=== PATIENT | female | born 1990 | race American Indian/Alaskan Native ===

== ENCOUNTER 2021-08-06 12:05 | Inpatient (IN) | payer MEDICAID ==
[2021-08-06] MEDS ORDERED: LACTATED RINGERS 1,000 ML ONE (16:27)
[2021-08-06 16:32] LABS: Basophils % (Auto) 0.5 % (0.0-1.8); Eosinophils % (Auto) 0.5 % (0.0-4.3); Hematocrit 34.4 % (30.3-42.9); Hemoglobin 11.8 gm/dl (10.1-14.3); Lymphocytes # (Auto) 1.3 K/mm3 (1.2-5.4); Lymphocytes % (Auto) 22.1 % (13.4-35.0); Mean Corpuscular HGB Conc 34 % (30-34); Mean Corpuscular Volume 96 fl (79-97); Monocytes # (Auto) 0.5 K/mm3 (0.0-0.8); Monocytes % (Auto) 7.7 % (0.0-7.3); Platelet Count 113 K/mm3 (140-440); Red Blood Count 3.57 M/mm3 (3.65-5.03); Red Cell Distribution Width 14.8 % (13.2-15.2)
--- NOTE | 2021-08-06 16:48 | History and Physical Report ---
History of Present Illness Date of examination: 08/06/21 Date of admission: 08/06/21 13:38 Chief complaint: Presents for induction of labor due to IUGR History of present illness: Late entry to care, course complicated by Vitamin D Deficiency and HSV II, with history of outbreak during ; third trimester complicated by IUGR. 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 Family/Genetic History: heart disease (PGF), hypertension (MGF), cancer (PGM: B rain and Lung Ca) Social history: no significant social history, single - Obstetrical History Expected Date of Delivery: 08/06/21 Actual Gestation: 40 Week(s) 0 Day(s) : 2 Spontaneous Abortions: 1 Medications and Allergies Allergies Allergy/AdvReac Type Severity Reaction Status Date / Time No Known Allergies Allergy Unverified 08/06/21 14:48 Active Meds: Active Medications Citric Acid/Sodium Citrate (Bicitra Oral Liqd 30ml) 30 ml PO ONCE ONE Stop: 08/06/21 16:40 Famotidine (Famotidine 20 Mg/2 Ml Inj) 20 mg IV ONCE ONE Stop: 08/06/21 16:40 Lactated Ringer's (Lactated Ringers) 1,000 mls @ 2,250 mls/hr IV PREOP RENETTA Stop: 08/07/21 17:12 Oxytocin/Sodium Chloride (Pitocin/Ns 30 Unit/500ml) 30 units in 500 mls @ 0 mls/hr IV TITR RENETTA; Protocol Cefazolin Sodium (Ancef/Sterile Water 2 Gm/20 Ml) 2 gm in 20 mls @ 80 mls/hr IV PREOP NR; Protocol Lidocaine/Prilocaine (Emla Cream 5 Gm) 1 applic TP ONCE PRN PRN Reason: for escalante catheter insertion Metoclopramide HCl (Metoclopramide 10 Mg/2 Ml Inj) 10 mg IV ONCE ONE Stop: 08/06/21 16:40 Review of Systems All systems: negative - Vital Signs Vital signs: Vital Signs Pulse Pulse Ox 69 99 08/06/21 14:37 08/06/21 14:37 Temp Pulse Resp BP Pulse Ox 98.4 F 52 L 100/65 100 08/06/21 15:13 08/06/21 16:42 08/06/21 14:43 08/06/21 16:42 - Physical Exam Breasts: Positive: normal Cardiovascular: Regular rate Lungs: Positive: Clear to auscultation, Normal air movement Abdomen: Positive: normal appearance, soft, normal bowel sounds Genitourinary (Female): Positive: normal external genitalia, normal perenium Vagina: Positive: normal moisture Uterus: Positive: enlarged - Obstetrical FHR: category 2 FHR comments: FHR: 120, min to moderate varability, +occ mild varabile decel, and 1 decel down to the 70s lasting 2 mins (resolved). Currently Category I Tracing Uterine Contraction Monitor Mode: External Cervical Dilatation: 0 Cervical Effacement Percentage: 20 station: -4 Uterine Contraction Pattern: Absent Uterine Tone Measurement Phase: Resting Results Result Diagrams: 08/06/21 16:08 Abnormal lab results 08/06/21 Range/Units 16:08 [place] % (Auto) 7.7 H (0.0-7.3) % All other labs normal. Assessment and Plan A: IUP @ 40 Weeks Category II Tracing (resloved), currently Category I Tracing IUGR GBS Negative P: Admit to L&D per Routine Orders Dr. Smart Consulted; Recommends delivery by
[2021-08-06] MEDS ORDERED: EMLA CREAM 5 GM TP PRN (17:00)
[2021-08-06] MEDS ORDERED: OXYTOCIN DRIP 30 UNITS/500 ML BAG IV SCH (17:00)
[2021-08-06] MEDS ORDERED: ceFAZolin/Water 2 GM/20 ML 2 GM/20 ML SYRINGE IV NR ×2 (17:00→23:45)
[2021-08-06] MEDS ORDERED: METOCLOPRAMIDE 10 MG/2 ML INJ IV SCH (17:00)
[2021-08-06] MEDS ORDERED: FAMOTIDINE 20 MG/2 ML INJ IV SCH (17:00)
[2021-08-06] MEDS ORDERED: BICITRA ORAL LIQD 30ML PO SCH (17:00)
[2021-08-06] MEDS ORDERED: LACTATED RINGERS 1,000 ML IV SCH (17:00)
--- NOTE | 2021-08-06 18:19 | Progress Note ---
Subjective - Subjective Date of service: 08/06/21 Interval history: FHT Category 1 [place]: irregular Cervix FT/soft,posterior Plan for low dose oxytocin Ashia Smart MD Objective - Vital Signs Vital Signs: Vital Signs - 12hr 08/06/21 08/06/21 08/06/21 14:37 14:42 14:43 Temperature Pulse Rate 69 71 68 Blood Pressure 100/65 O2 Sat by Pulse 99 99 Oximetry O2 Sat by Pulse Oximetry [ Bilateral Throughout] 08/06/21 08/06/21 08/06/21 14:47 14:52 14:57 Temperature Pulse Rate 65 62 69 Blood Pressure O2 Sat by Pulse 98 99 98 Oximetry O2 Sat by Pulse Oximetry [ Bilateral Throughout] 08/06/21 08/06/21 08/06/21 15:02 15:07 15:10 Temperature Pulse Rate 61 65 Blood Pressure O2 Sat by Pulse 99 97 Oximetry O2 Sat by Pulse 100 Oximetry [ Bilateral Throughout] 08/06/21 08/06/21 08/06/21 15:12 15:13 15:17 Temperature 98.4 F Pulse Rate 65 63 Blood Pressure O2 Sat by Pulse 97 97 Oximetry O2 Sat by Pulse Oximetry [ Bilateral Throughout] 08/06/21 08/06/21 08/06/21 15:22 15:27 15:32 Temperature Pulse Rate 68 64 64 Blood Pressure O2 Sat by Pulse 97 97 97 Oximetry O2 Sat by Pulse Oximetry [ Bilateral Throughout] 08/06/21 08/06/21 08/06/21 15:37 15:42 15:47 Temperature Pulse Rate 63 65 66 Blood Pressure O2 Sat by Pulse 97 97 97 Oximetry O2 Sat by Pulse Oximetry [ Bilateral Throughout] 08/06/21 08/06/21 08/06/21 15:52 15:57 16:02 Temperature Pulse Rate 62 67 71 Blood Pressure O2 Sat by Pulse 97 98 98 Oximetry O2 Sat by Pulse Oximetry [ Bilateral Throughout] 08/06/21 08/06/21 08/06/21 16:07 16:12 16:17 Temperature Pulse Rate 64 72 65 Blood Pressure O2 Sat by Pulse 98 99 100 Oximetry O2 Sat by Pulse Oximetry [ Bilateral Throughout] 08/06/21 08/06/21 08/06/21 16:22 16:27 16:32 Temperature Pulse Rate 66 63 57 L Blood Pressure O2 Sat by Pulse 99 100 100 Oximetry O2 Sat by Pulse Oximetry [ Bilateral Throughout] 08/06/21 08/06/21 08/06/21 16:37 16:42 16:47 Temperature Pulse Rate 56 L 52 L 56 L Blood Pressure O2 Sat by Pulse 100 100 100 Oximetry O2 Sat by Pulse Oximetry [ Bilateral Throughout] 08/06/21 08/06/21 08/06/21 16:52 16:57 17:02 Temperature Pulse Rate 60 57 L 52 L Blood Pressure O2 Sat by Pulse 100 100 100 Oximetry O2 Sat by Pulse Oximetry [ Bilateral Throughout] 08/06/21 08/06/21 08/06/21 17:07 17:12 17:17 Temperature Pulse Rate 52 L 57 L 54 L Blood Pressure O2 Sat by Pulse 100 100 100 Oximetry O2 Sat by Pulse Oximetry [ Bilateral Throughout] 08/06/21 08/06/21 08/06/21 17:20 17:22 17:24 Temperature Pulse Rate 72 66 54 L Blood Pressure 112/82 O2 Sat by Pulse 94 100 Oximetry O2 Sat by Pulse Oximetry [ Bilateral Throughout] 08/06/21 08/06/21 08/06/21 17:34 17:39 17:44 Temperature Pulse Rate 74 60 66 Blood Pressure O2 Sat by Pulse 78 L 100 100 Oximetry O2 Sat by Pulse Oximetry [ Bilateral Throughout] 08/06/21 08/06/21 08/06/21 17:49 17:54 17:59 Temperature Pulse Rate 58 L 63 58 L Blood Pressure O2 Sat by Pulse 100 100 100 Oximetry O2 Sat by Pulse Oximetry [ Bilateral Throughout] 08/06/21 08/06/21 08/06/21 18:04 18:09 18:14 Temperature Pulse Rate 68 67 55 L Blood Pressure O2 Sat by Pulse 100 100 99 Oximetry O2 Sat by Pulse Oximetry [ Bilateral Throughout] - Labs Labs: Abnormal Labs 08/06/21 16:08 RBC 3.57 L MCH 33 H Plt Count 113 L [place] % (Auto) 7.7 H Laboratory Results - last 24 hr 08/06/21 08/06/21 16:08 16:15 WBC 6.0 RBC 3.57 L Hgb 11.8 Hct 34.4 MCV 96 MCH 33 H MCHC 34 RDW 14.8 Plt Count 113 L Lymph % (Auto) 22.1 [place] % (Auto) 7.7 H Eos % (Auto) 0.5 Baso % (Auto) 0.5 Lymph # (Auto) 1.3 [place] # (Auto) 0.5 Eos # (Auto) 0.0 Baso # (Auto) 0.0 Seg Neutrophils % 69.2 Seg Neutrophils # 4.1 Blood Type O POSITIVE Antibody Screen Negative
[2021-08-06] MEDS ORDERED: DINOPROSTONE 10 MG VAG SUPP VG ONE (20:27)
[2021-08-06] MEDS ORDERED: TERBUTALINE 1 MG/1 ML INJ ONE (23:53)
[2021-08-06] MEDS ORDERED: BICITRA ORAL LIQD 30ML PO ONE (23:55)
[2021-08-06] MEDS ORDERED: METOCLOPRAMIDE 10 MG/2 ML INJ IV ONE (23:55)
[2021-08-06] MEDS ORDERED: FAMOTIDINE 20 MG/2 ML INJ IV ONE (23:55)
--- NOTE | 2021-08-06 23:57 | Event Note ---
Date: 08/06/21 Patient having persistent variables cervidil removed plan for delivery informed consent Ashia Smart MD
[2021-08-07] MEDS ORDERED: TERBUTALINE 1 MG/1 ML INJ SUB-Q ONE
[2021-08-07] MEDS ORDERED: FAMOTIDINE 20 MG/2 ML INJ IV ONE (00:58)
[2021-08-07] MEDS ORDERED: METOCLOPRAMIDE 10 MG/2 ML INJ IV ONE (00:58)
[2021-08-07] MEDS ORDERED: BICITRA ORAL LIQD 30ML PO ONE (00:58)
[2021-08-07] MEDS ORDERED: ceFAZolin/Water 2 GM/20 ML 2 GM/20 ML SYRINGE IV NR ×2 (01:00→09:00)
[2021-08-07] MEDS ORDERED: LACTATED RINGERS 1,000 ML IV SCH (01:00)
--- NOTE | 2021-08-07 01:00 | Progress Note ---
Subjective - Subjective Date of service: 08/07/21 Interval history: Prolonged second stage>4 hours +ve caput Early chorio suspected plan for operative delivery informed consent Ashia Smart MD Objective - Vital Signs Vital Signs: Vital Signs - 12hr 08/06/21 08/06/21 08/06/21 14:37 14:42 14:43 Temperature Pulse Rate 69 71 68 Respiratory Rate Blood Pressure 100/65 O2 Sat by Pulse 99 99 Oximetry O2 Sat by Pulse Oximetry [ Bilateral Throughout] 08/06/21 08/06/21 08/06/21 14:47 14:52 14:57 Temperature Pulse Rate 65 62 69 Respiratory Rate Blood Pressure O2 Sat by Pulse 98 99 98 Oximetry O2 Sat by Pulse Oximetry [ Bilateral Throughout] 08/06/21 08/06/21 08/06/21 15:02 15:07 15:10 Temperature Pulse Rate 61 65 Respiratory Rate Blood Pressure O2 Sat by Pulse 99 97 Oximetry O2 Sat by Pulse 100 Oximetry [ Bilateral Throughout] 08/06/21 08/06/21 08/06/21 15:12 15:13 15:17 Temperature 98.4 F Pulse Rate 65 63 Respiratory Rate Blood Pressure O2 Sat by Pulse 97 97 Oximetry O2 Sat by Pulse Oximetry [ Bilateral Throughout] 08/06/21 08/06/21 08/06/21 15:22 15:27 15:32 Temperature Pulse Rate 68 64 64 Respiratory Rate Blood Pressure O2 Sat by Pulse 97 97 97 Oximetry O2 Sat by Pulse Oximetry [ Bilateral Throughout] 08/06/21 08/06/21 08/06/21 15:37 15:42 15:47 Temperature Pulse Rate 63 65 66 Respiratory Rate Blood Pressure O2 Sat by Pulse 97 97 97 Oximetry O2 Sat by Pulse Oximetry [ Bilateral Throughout] 08/06/21 08/06/21 08/06/21 15:52 15:57 16:02 Temperature Pulse Rate 62 67 71 Respiratory Rate Blood Pressure O2 Sat by Pulse 97 98 98 Oximetry O2 Sat by Pulse Oximetry [ Bilateral Throughout] 08/06/21 08/06/21 08/06/21 16:07 16:12 16:17 Temperature Pulse Rate 64 72 65 Respiratory Rate Blood Pressure O2 Sat by Pulse 98 99 100 Oximetry O2 Sat by Pulse Oximetry [ Bilateral Throughout] 08/06/21 08/06/21 08/06/21 16:22 16:27 16:32 Temperature Pulse Rate 66 63 57 L Respiratory Rate Blood Pressure O2 Sat by Pulse 99 100 100 Oximetry O2 Sat by Pulse Oximetry [ Bilateral Throughout] 08/06/21 08/06/21 08/06/21 16:37 16:42 16:47 Temperature Pulse Rate 56 L 52 L 56 L Respiratory Rate Blood Pressure O2 Sat by Pulse 100 100 100 Oximetry O2 Sat by Pulse Oximetry [ Bilateral Throughout] 08/06/21 08/06/21 08/06/21 16:52 16:57 17:02 Temperature Pulse Rate 60 57 L 52 L Respiratory Rate Blood Pressure O2 Sat by Pulse 100 100 100 Oximetry O2 Sat by Pulse Oximetry [ Bilateral Throughout] 08/06/21 08/06/21 08/06/21 17:07 17:12 17:17 Temperature Pulse Rate 52 L 57 L 54 L Respiratory Rate Blood Pressure O2 Sat by Pulse 100 100 100 Oximetry O2 Sat by Pulse Oximetry [ Bilateral Throughout] 08/06/21 08/06/21 08/06/21 17:20 17:22 17:24 Temperature Pulse Rate 72 66 54 L Respiratory Rate Blood Pressure 112/82 O2 Sat by Pulse 94 100 Oximetry O2 Sat by Pulse Oximetry [ Bilateral Throughout] 08/06/21 08/06/21 08/06/21 17:34 17:39 17:44 Temperature Pulse Rate 74 60 66 Respiratory Rate Blood Pressure O2 Sat by Pulse 78 L 100 100 Oximetry O2 Sat by Pulse Oximetry [ Bilateral Throughout] 08/06/21 08/06/21 08/06/21 17:49 17:54 17:59 Temperature Pulse Rate 58 L 63 58 L Respiratory Rate Blood Pressure O2 Sat by Pulse 100 100 100 Oximetry O2 Sat by Pulse Oximetry [ Bilateral Throughout] 08/06/21 08/06/21 08/06/21 18:04 18:09 18:14 Temperature Pulse Rate 68 67 55 L Respiratory Rate Blood Pressure O2 Sat by Pulse 100 100 99 Oximetry O2 Sat by Pulse Oximetry [ Bilateral Throughout] 08/06/21 08/06/21 08/06/21 18:19 18:20 18:24 Temperature 98.4 F Pulse Rate 62 68 Respiratory 18 Rate Blood Pressure O2 Sat by Pulse 100 100 Oximetry O2 Sat by Pulse Oximetry [ Bilateral Throughout] 08/06/21 08/06/21 08/06/21 18:29 18:34 18:39 Temperature Pulse Rate 63 56 L 71 Respiratory Rate Blood Pressure O2 Sat by Pulse 100 99 99 Oximetry O2 Sat by Pulse Oximetry [ Bilateral Throughout] 08/06/21 08/06/21 08/06/21 18:42 18:44 18:49 Temperature Pulse Rate 69 61 63 Respiratory Rate Blood Pressure 106/72 O2 Sat by Pulse 98 97 Oximetry O2 Sat by Pulse Oximetry [ Bilateral Throughout] 08/06/21 08/06/21 08/06/21 18:54 18:59 19:04 Temperature Pulse Rate 56 L 87 78 Respiratory Rate Blood Pressure O2 Sat by Pulse 98 100 100 Oximetry O2 Sat by Pulse Oximetry [ Bilateral Throughout] 08/06/21 08/06/21 08/06/21 19:09 19:12 19:14 Temperature Pulse Rate 80 72 69 Respiratory Rate Blood Pressure 109/71 O2 Sat by Pulse 100 100 Oximetry O2 Sat by Pulse Oximetry [ Bilateral Throughout] 08/06/21 08/06/21 08/06/21 19:19 19:24 19:27 Temperature Pulse Rate 60 74 82 Respiratory Rate Blood Pressure O2 Sat by Pulse 100 100 90 Oximetry O2 Sat by Pulse Oximetry [ Bilateral Throughout] 08/06/21 08/06/21 08/06/21 19:29 19:33 19:34 Temperature Pulse Rate 64 73 58 L Respiratory Rate Blood Pressure O2 Sat by Pulse 100 92 100 Oximetry O2 Sat by Pulse Oximetry [ Bilateral Throughout] 08/06/21 08/06/21 08/06/21 19:39 19:42 19:44 Temperature Pulse Rate 72 101 H 98 H Respiratory Rate Blood Pressure 108/68 O2 Sat by Pulse 100 87 84 Oximetry O2 Sat by Pulse Oximetry [ Bilateral Throughout] 08/06/21 08/06/21 08/06/21 20:04 20:36 20:37 Temperature Pulse Rate 75 81 Respiratory Rate Blood Pressure 100/64 O2 Sat by Pulse 98 Oximetry O2 Sat by Pulse 100 Oximetry [ Bilateral Throughout] 08/06/21 08/06/21 08/06/21 20:42 20:47 20:52 Temperature Pulse Rate 75 80 70 Respiratory Rate Blood Pressure O2 Sat by Pulse 99 98 97 Oximetry O2 Sat by Pulse Oximetry [ Bilateral Throughout] 08/06/21 08/06/21 08/06/21 20:53 20:57 21:02 Temperature Pulse Rate 67 67 73 Respiratory Rate Blood Pressure 100/61 O2 Sat by Pulse 97 97 Oximetry O2 Sat by Pulse Oximetry [ Bilateral Throughout] 08/06/21 08/06/21 08/06/21 21:07 21:12 21:15 Temperature Pulse Rate 74 61 59 L Respiratory Rate Blood Pressure 103/61 O2 Sat by Pulse 97 98 Oximetry O2 Sat by Pulse Oximetry [ Bilateral Throughout] 08/06/21 08/06/21 08/06/21 21:17 21:22 21:23 Temperature Pulse Rate 62 65 57 L Respiratory Rate Blood Pressure 101/64 O2 Sat by Pulse 98 98 Oximetry O2 Sat by Pulse Oximetry [ Bilateral Throughout] 08/06/21 08/06/21 08/06/21 21:27 21:32 21:37 Temperature Pulse Rate 71 68 70 Respiratory Rate Blood Pressure O2 Sat by Pulse 97 97 96 Oximetry O2 Sat by Pulse Oximetry [ Bilateral Throughout] 08/06/21 08/06/21 08/06/21 21:40 21:42 21:47 Temperature Pulse Rate 70 66 69 Respiratory Rate Blood Pressure 104/55 O2 Sat by Pulse 96 96 Oximetry O2 Sat by Pulse Oximetry [ Bilateral Throughout] 08/06/21 08/06/21 08/06/21 21:52 21:53 21:57 Temperature Pulse Rate 69 72 71 Respiratory Rate Blood Pressure 100/59 O2 Sat by Pulse 97 96 Oximetry O2 Sat by Pulse Oximetry [ Bilateral Throughout] 08/06/21 08/06/21 08/06/21 22:02 22:07 22:08 Temperature Pulse Rate 65 63 67 Respiratory Rate Blood Pressure 108/60 O2 Sat by Pulse 97 98 Oximetry O2 Sat by Pulse Oximetry [ Bilateral Throughout] 08/06/21 08/06/21 08/06/21 22:12 22:17 22:22 Temperature Pulse Rate 66 69 65 Respiratory Rate Blood Pressure O2 Sat by Pulse 98 98 98 Oximetry O2 Sat by Pulse Oximetry [ Bilateral Throughout] 08/06/21 08/06/21 08/06/21 22:23 22:27 22:32 Temperature Pulse Rate 63 65 58 L Respiratory Rate Blood Pressure 108/61 O2 Sat by Pulse 99 98 Oximetry O2 Sat by Pulse Oximetry [ Bilateral Throughout] 08/06/21 08/06/21 08/06/21 22:37 22:39 22:42 Temperature Pulse Rate 63 61 63 Respiratory Rate Blood Pressure 100/63 O2 Sat by Pulse 99 98 Oximetry O2 Sat by Pulse Oximetry [ Bilateral Throughout] 08/06/21 08/06/21 08/06/21 22:47 22:52 22:53 Temperature Pulse Rate 62 71 71 Respiratory Rate Blood Pressure 110/67 O2 Sat by Pulse 98 97 Oximetry O2 Sat by Pulse Oximetry [ Bilateral Throughout] 08/06/21 08/06/21 08/06/21 22:57 23:02 23:07 Temperature Pulse Rate 79 72 78 Respiratory Rate Blood Pressure O2 Sat by Pulse 99 98 97 Oximetry O2 Sat by Pulse Oximetry [ Bilateral Throughout] 08/06/21 08/06/21 08/06/21 23:10 23:12 23:17 Temperature Pulse Rate 61 62 61 Respiratory Rate Blood Pressure 95/55 O2 Sat by Pulse 97 97 Oximetry O2 Sat by Pulse Oximetry [ Bilateral Throughout] 08/06/21 08/06/21 08/06/21 23:22 23:23 23:27 Temperature Pulse Rate 65 61 61 Respiratory Rate Blood Pressure 101/55 O2 Sat by Pulse 97 97 Oximetry O2 Sat by Pulse Oximetry [ Bilateral Throughout] 08/06/21 08/06/21 08/06/21 23:32 23:37 23:39 Temperature Pulse Rate 62 64 78 Respiratory Rate Blood Pressure 114/65 O2 Sat by Pulse 97 99 Oximetry O2 Sat by Pulse Oximetry [ Bilateral Throughout] 08/06/21 08/06/21 08/06/21 23:42 23:47 23:52 Temperature Pulse Rate 65 64 81 Respiratory Rate Blood Pressure O2 Sat by Pulse 98 100 100 Oximetry O2 Sat by Pulse Oximetry [ Bilateral Throughout] 08/06/21 08/06/21 08/06/21 23:54 23:56 23:57 Temperature Pulse Rate 78 68 57 L Respiratory Rate Blood Pressure 133/75 O2 Sat by Pulse 88 100 Oximetry O2 Sat by Pulse Oximetry [ Bilateral Throughout] - Labs Labs: Abnormal Labs 08/06/21 16:08 RBC 3.57 L MCH 33 H Plt Count 113 L [place] % (Auto) 7.7 H Laboratory Results - last 24 hr 08/06/21 08/06/21 16:08 16:15 WBC 6.0 RBC 3.57 L Hgb 11.8 Hct 34.4 MCV 96 MCH 33 H MCHC 34 RDW 14.8 Plt Count 113 L Lymph % (Auto) 22.1 [place] % (Auto) 7.7 H Eos % (Auto) 0.5 Baso % (Auto) 0.5 Lymph # (Auto) 1.3 [place] # (Auto) 0.5 Eos # (Auto) 0.0 Baso # (Auto) 0.0 Seg Neutrophils % 69.2 Seg Neutrophils # 4.1 Blood Type O POSITIVE Antibody Screen Negative
[2021-08-07] MEDS ORDERED: BICITRA ORAL LIQD 30ML PO NR (09:00)
[2021-08-07] MEDS ORDERED: METOCLOPRAMIDE 10 MG/2 ML INJ IV NR (09:00)
[2021-08-07] MEDS ORDERED: FAMOTIDINE 20 MG/2 ML INJ IV NR (09:00)
[2021-08-07] MEDS ORDERED: TERBUTALINE 1 MG/1 ML INJ SUB-Q NR (09:00)
--- NOTE | 2021-08-07 09:02 | Anesthesia Consultation ---
Anesthesia Consult and Med Hx Date of service: 08/07/21 - Airway Anesthetic Teeth Evaluation: Good ROM Head & Neck: Adequate Mental/Hyoid Distance: Adequate Mallampati Class: Class II Intubation Access Assessment: Probably Good - Pulmonary Exam CTA: Yes - Cardiac Exam Cardiac Exam: RRR - Pre-Operative Health Status ASA Pre-Surgery Classification: ASA2 Proposed Anesthetic Plan: Spinal - Pulmonary Hx Asthma: No COPD: No Hx Pneumonia: No - Cardiovascular System Hx Hypertension: No - Central Nervous System Hx Seizures: No Hx Psychiatric Problems: No - Endocrine Hx Renal Disease: No Hx End Stage Renal Disease: No Hx Hypothyroidism: No Hx Hyperthyroidism: No - Hematic Hx Anemia: No Hx Sickle Cell Disease: No - Other Systems Hx Alcohol Use: No
--- NOTE | 2021-08-07 09:02 | Anesthesia Day of Surgery ---
Anesthesia Day of Surgery - Day of Surgery Patient Examined: Yes Patient H&P Reviewed: Yes Patient is NPO: Yes
[2021-08-07] MEDS: LACTATED RINGERS 1,000 ML IV SCH ×2 (09:30→11:32)
[2021-08-07] MEDS ORDERED: LIDOCAINE (2%) 20 MG/1 ML VIAL 20 ML MDV INFILTRATI ONE (12:05)
[2021-08-07] MEDS ORDERED: TERBUTALINE 1 MG/1 ML INJ SUB-Q PRN (12:05)
[2021-08-07] MEDS ORDERED: ceFAZolin/STERILE WATER 2 GM/20 ML SYRINGE IV ONE (12:30)
[2021-08-07] MEDS ORDERED: ONDANSETRON 4 MG/2 ML INJ ONE ×2 (12:30)
[2021-08-07] MEDS ORDERED: OXYTOCIN DRIP 30 UNITS/500 ML BAG IV SCH ×2 (13:00→14:00)
[2021-08-07] MEDS ORDERED: BUPIVACAINE/PF (0.5%) 5 MG/1 ML 30 ML VIAL INFILTRATI ONE (13:03)
--- NOTE | 2021-08-07 13:59 | Procedure Note ---
OB Delivery Note - Delivery Date of Delivery: 08/07/21 Surgeon: ISAÍAS NICKERSON JR - Section Preop diagnosis: nonreassuring FHR tracing Postop diagnosis: same section procedure: section, primary low transverse Disposition: PACU Complications: none Narrative: Indication: 31-year-old at 40 weeks, complicated by fetus with of IUGR presenting for an induction of labor now failed given inability to induce and nonreassuring heart tone for primary Findings: Normal uterus, tubes and ovaries. Meconium stained fluid. No nuchal cord. Delivery of female at 1314 Weight 2490 g Height 19.5 in APGARS 8/9 EBL IVF 1750cc UOP 600cc Procedure: Patient was taken to the operating room prepped and draped in the usual sterile fashion. Pfannenstiel skin incision was made and carried down to the underlying fascia. Fascia was incised and the incision was distended bilaterally. Rectus fascia was dissected off the rectus muscle superiorly and inferiorly. Peritoneum was identified and entered. Peritoneal incision extended superiorly and inferiorly. The bladder was visualized. The bladder blade was placed. Uterine hysterotomy incision was made and extended bilaterally. The baby was delivered in the typical vertex fashion. Baby was bulb suction at delivery. The cord was cut and clamped and handed off to the team. The placenta was delivered spontaneously. The uterus was exteriorized and cleared of all clots and debris. Uterine incision was closed with a 0 Vicryl in a running locked fashion. Good hemostasis was noted after figure of eight suture applied to the uterine incision x1. Surgicel powder. was applied to the uterine incisional base to provide hemostasis. The urine was noted to be clear. Uterus, tubes, and ovaries were returned to the abdominal cavity. Bilateral gutters were cleared and the abdomen and pelvis were irrig ated. Good hemostasis noted. The rectus muscle was reapproximated with 2-0 Vicryl. Attention was directed towards the rectus fascia which was reapproximated with 0 PDS in a running fashion. The subcutaneous tissue was irrigated and reapproximated with 2-0 Vicryl in a running fashion. Skin was closed with a 4-0 Vicryl in a subcuticular fashion. The procedure was completed and the patient tolerated the procedure well. All instruments and lap counts were correct x2. - Infant A at 1 minute: 8 at 5 minutes: 9 Infant Gender: Female
[2021-08-07] MEDS ORDERED: WITCH HAZEL/ GLYCERIN PAD TP PRN (14:00)
[2021-08-07] MEDS ORDERED: SIMETHICONE 80 MG CHEW TAB PO PRN (14:00)
[2021-08-07] MEDS ORDERED: PROMETHAZINE 25 MG RECT SUPP PR PRN (14:00)
[2021-08-07] MEDS ORDERED: ONDANSETRON 4 MG/2 ML INJ IV PRN (14:00)
[2021-08-07] MEDS ORDERED: oxyCODONE /ACETAMINOPHEN 5-325MG TAB PO PRN (14:00)
[2021-08-07] MEDS ORDERED: NALOXONE 0.4 MG/1 ML INJ IV PRN (14:00)
[2021-08-07] MEDS ORDERED: LANOLIN/ZINC/DIMETHICONE (LANSINOH) 7 GM TP PRN (14:00)
[2021-08-07] MEDS ORDERED: ACETAMINOPHEN 325 MG TAB PO PRN (14:00)
[2021-08-07] MEDS ORDERED: MORPHINE 4 MG/1 ML INJ IV PRN (14:00)
[2021-08-07] MEDS ORDERED: KETOROLAC 30 MG/1 ML INJ ONE (14:04)
[2021-08-07] MEDS ORDERED: dexAMETHasone 20 MG/5 ML VIAL ONE (14:04)
[2021-08-07] MEDS ORDERED: PHENYLEPHRINE 10 MG/1 ML INJ SDV ONE (14:15)
[2021-08-07] MEDS ORDERED: SODIUM CHLORIDE 0.9% 100 ML ONE (14:15)
[2021-08-07] MEDS ORDERED: HYDROCORTISONE 25 MG RECTAL SUPP PR PRN (22:00)
[2021-08-07] MEDS ORDERED: MAGNESIUM HYDROXIDE (MOM) ORAL LIQD UDC PO PRN (22:00)
[2021-08-07] MEDS ORDERED: SENNOSIDES 8.6 MG TAB PO PRN (22:00)
--- NOTE | 2021-08-07 22:09 | Progress Note ---
Spinal Anesthesia Block - Spinal Anesthesia Block Start Time: 12:22 Stop Time: 12:24 Performed by:: CRUZ BELTRAN Procedure: Sitting, sterile chlorahexadine 0.5% prep/drape, 1% lidocaine skin local, 25G spinal needle + introducer at L3-4, + CSF, - Heme, [1.9 ml 0.5% bupivacaine + 10 mcg dexmedetomidine] injected, drape removed, patient positioned supine with left uterine displacement, and spinal level verified to be adequate prior to surgery. Sukumar SRNA
[2021-08-07] MEDS: KETOROLAC 30 MG/1 ML INJ IV PRN (22:30)
[2021-08-08] MEDS: IBUPROFEN 800 MG TAB PO SCH ×4 (00:09→14:38)
[2021-08-08 03:06] LABS: Hemoglobin 10.9 gm/dl (10.1-14.3)
[2021-08-08] MEDS: KETOROLAC 30 MG/1 ML INJ IV PRN (04:43)
--- NOTE | 2021-08-08 10:03 | Post Anesthesia Evaluation ---
- Post Anesthesia Evaluation Patient Participated: Yes Airway Patent: Yes Stable Respiratory Function: Yes Nausea/Vomiting: No Temp > 96.8F: Yes Pain Manageable: Yes Adequeate Hydration: Yes Anesthesia Complications: No Block Receding Appropriately: Yes Patient on Ventilator: No
--- NOTE | 2021-08-08 13:23 | Progress Note ---
Assessment and Plan POD#1 C/Section doing well 1. Routine post op care 2. Pt to ambulate in room 3. Will remove dressing in am Subjective Date of service: 08/08/21 Principal diagnosis: POD#1 C/Section Interval history: pt has no complaints. pt has started both breast and bottle feed. pt voids without difficulty and vag bleed minimal. pt has passed flatus and tolerating clears diet. Pain controlled with meds Objective - Constitutional Vitals: Vital Signs - 12hr 08/08/21 08/08/21 08/08/21 02:47 04:32 04:43 Temperature 98.4 F Pulse Rate 52 L Respiratory 18 16 18 Rate Blood Pressure 125/78 O2 Sat by Pulse 98 Oximetry O2 Sat by Pulse Oximetry [ Bilateral Throughout] 08/08/21 08/08/21 08/08/21 05:13 08:00 08:10 Temperature 98.0 F Pulse Rate 44 L Respiratory 18 18 Rate Blood Pressure 109/69 O2 Sat by Pulse 99 Oximetry O2 Sat by Pulse 100 Oximetry [ Bilateral Throughout] 08/08/21 12:24 Temperature 97.9 F Pulse Rate 50 L Respiratory 18 Rate Blood Pressure 112/74 O2 Sat by Pulse 99 Oximetry O2 Sat by Pulse Oximetry [ Bilateral Throughout] General appearance: Present: no acute distress - Respiratory Respiratory effort: normal - Cardiovascular Rhythm: other (maternal heart rate low in 40-50's without symptoms) Extremities: No edema - Gastrointestinal General gastrointestinal: Present: soft, non-tender, normal bowel sounds - Musculoskeletal Musculoskeletal: strength equal bilaterally - Labs CBC & Chem 7: 08/08/21 02:02 Medications & Allergies - Medications Allergies/Adverse Reactions: Allergies No Known Allergies Allergy (Verified 08/06/21 18:35) Home Medications: Home Medications Medication Instructions Recorded Confirmed Last Taken Type Vitamin 1 tab PO DAILY 08/06/21 08/06/21 08/06/21 10:00 History Valacyclovir HCl [Valacyclovir] 1 tab PO BID 08/06/21 08/06/21 07/31/21 History Vitamin D3 2,000 UNIT CAP 2 tab PO DAILY 08/06/21 08/06/21 08/06/21 10:00 History Ibuprofen [Motrin 800 MG tab] 800 mg PO Q6H #30 tablet 08/07/21 Unknown Rx oxyCODONE /ACETAMINOPHEN [Percocet 1 tab PO Q6H PRN #30 tablet 08/07/21 Unknown Rx 5/325 mg] Active Medications: Generic Name Dose Route Start Last Admin Trade Name Freq PRN Reason Stop Dose Admin Acetaminophen 650 mg 08/07/21 14:00 Acetaminophen 325 Mg Tab PO Q4H PRN Fever >100.5/LIGHT Hydrocortisone Acetate 25 mg 08/07/21 22:00 Hydrocortisone 25 Mg Rectal Supp UT BID PRN Hemorrhoids Oxytocin/Sodium Chloride 30 units in 500 mls @ 2 mls/hr 08/07/21 13:00 Pitocin/Ns 30 Unit/500ml IV TITR R[facility] Protocol Oxytocin/Sodium Chloride 30 units in 500 mls @ 40 mls/hr 08/07/21 14:00 Pitocin/Ns 30 Unit/500ml IV TITR [facility] Protocol Ketorolac Tromethamine 30 mg 08/07/21 14:00 08/08/21 04:43 Ketorolac 30 Mg/1 Ml Inj IV 08/12/21 13:59 30 mg Q6H PRN Administration Pain, Moderate (4-6) Lidocaine/Prilocaine 1 applic 08/06/21 17:00 Emla Cream 5 Gm TP ONCE PRN for escalante catheter insertion Magnesium Hydroxide 30 ml 08/07/21 22:00 Magnesium Hydroxide (Mom) Oral Liqd Udc PO QHS PRN Constip Unrelieved By Senna Morphine Sulfate 4 mg 08/07/21 14:00 Morphine 4 Mg/1 Ml Inj IV Q4H PRN Pain , Severe (7-10) Multi-Ingredient Ointment 1 applic 08/07/21 14:00 Lanolin/Zinc/Dimethicone (Lansinoh) 7 Gm TP PRN PRN dryness/cracking Naloxone HCl 0.1 mg 08/07/21 14:00 Naloxone 0.4 Mg/1 Ml Inj IV Q2MIN PRN Res Rate </= 8 or 02 SAT < 92% Ondansetron HCl 4 mg 08/07/21 14:00 Ondansetron 4 Mg/2 Ml Inj IV Q8H PRN Nausea And Vomiting Oxycodone/Acetaminophen 1 tab 08/07/21 14:00 Oxycodone /Acetaminophen 5-325mg Tab PO Q6H PRN Pain, Moderate (4-6) Promethazine HCl 25 mg 08/07/21 14:00 Promethazine 25 Mg Rect Supp UT Q6H PRN N/V IF NPO AND NO IV ACCESS Senna 17.2 mg 08/07/21 22:00 Sennosides 8.6 Mg Tab PO QHS PRN Constipation Simethicone 80 mg 08/07/21 14:00 Simethicone 80 Mg Chew Tab PO Q6H PRN Gas pain Sodium Chloride 10 ml 08/07/21 14:00 Sodium Chloride 0.9% 10 Ml Flush Syringe IV PRN PRN flush Witch Amanda/Glycerin 1 each 08/07/21 14:00 Witch Amanda/ Glycerin Pad TP PRN PRN Hemorrhoids/cleansing/soothing
--- NOTE | 2021-08-08 19:10 | Event Note ---
Date: 08/08/21 pt was asymptomatic with maternal bradycardia. EKG done with sinus gabrielle. pt now with heart rate 64 and doing well. Will do expectant mgt.
--- NOTE | 2021-08-09 11:20 | Progress Note ---
Assessment and Plan POD#2 C/section doing fair, wound moist 1. Will keep wound open to air dry and give augmentin to enhance wound healing 2. Will consider discharge home tomorrow if wound dry and healing as expected; pt told not to take shower today 3. Plan of care discussed and pt agrees with plan of care Subjective Date of service: 08/09/21 Principal diagnosis: POD#2 C/Section Interval history: Pt has no complaints. Denies chest pain and pt feels fine and is breast feeding better today. Pt denies pelvic pain. Voiding well and tolerating diet Objective - Constitutional Vitals: Vital Signs - 12hr 08/09/21 08/09/21 08/09/21 00:20 00:39 08:17 Temperature 98.1 F 98.3 F Pulse Rate 81 54 L Respiratory 18 18 Rate Blood Pressure 100/59 109/60 O2 Sat by Pulse 97 98 Oximetry O2 Sat by Pulse 98 Oximetry [ Bilateral Throughout] General appearance: Present: no acute distress - Neck Neck: normal ROM - Respiratory Respiratory effort: normal - Cardiovascular Rhythm: other (still with bradycardia at times but remains asymptomatic) Extremities: No edema - Gastrointestinal General gastrointestinal: Present: non-tender (Incision after dressing removed is soaked with all blood stained steristrips and small dark red clot. Non- tender to palpation) - Neurologic Neurologic: moves all extremities - Psychiatric Psychiatric: cooperative - Labs CBC & Chem 7: 08/08/21 02:02 Medications & Allergies - Medications Allergies/Adverse Reactions: Allergies No Known Allergies Allergy (Verified 08/06/21 18:35) Home Medications: Home Medications Medication Instructions Recorded Confirmed Last Taken Type Vitamin 1 tab PO DAILY 08/06/21 08/06/21 08/06/21 10:00 History Valacyclovir HCl [Valacyclovir] 1 tab PO BID 08/06/21 08/06/21 07/31/21 History Vitamin D3 2,000 UNIT CAP 2 tab PO DAILY 08/06/21 08/06/21 08/06/21 10:00 History Ibuprofen [Motrin 800 MG tab] 800 mg PO Q6H #30 tablet 08/07/21 Unknown Rx oxyCODONE /ACETAMINOPHEN [Percocet 1 tab PO Q6H PRN #30 tablet 08/07/21 Unknown Rx 5/325 mg] Active Medications: Generic Name Dose Route Start Last Admin Trade Name Freq PRN Reason Stop Dose Admin Acetaminophen 650 mg 10/07/21 14:00 Acetaminophen 325 Mg Tab PO Q4H PRN Fever >100.5/LIGHT Amoxicillin/Clavulanate Potassium 1 each 08/09/21 10:59 Amoxicillin/K Clav 875/125mg Tab PO 08/14/21 10:58 Q12HR [facility] Protocol Hydrocortisone Acetate 25 mg 08/07/21 22:00 Hydrocortisone 25 Mg Rectal Supp DC BID PRN Hemorrhoids Oxytocin/Sodium Chloride 30 units in 500 mls @ 2 mls/hr 08/07/21 13:00 Pitocin/Ns 30 Unit/500ml IV TITR R[facility]ET[facility] Protocol Oxytocin/Sodium Chloride 30 units in 500 mls @ 40 mls/hr 08/07/21 14:00 Pitocin/Ns 30 Unit/500ml IV TITR [facility] Protocol Ketorolac Tromethamine 30 mg 08/07/21 14:00 08/08/21 04:43 Ketorolac 30 Mg/1 Ml Inj IV 08/12/21 13:59 30 mg Q6H PRN Administration Pain, Moderate (4-6) Lidocaine/Prilocaine 1 applic 08/06/21 17:00 Emla Cream 5 Gm TP ONCE PRN for escalante catheter insertion Magnesium Hydroxide 30 ml 08/07/21 22:00 Magnesium Hydroxide (Mom) Oral Liqd Udc PO QHS PRN Constip Unrelieved By Senna Morphine Sulfate 4 mg 08/07/21 14:00 Morphine 4 Mg/1 Ml Inj IV Q4H PRN Pain , Severe (7-10) Multi-Ingredient Ointment 1 applic 08/07/21 14:00 Lanolin/Zinc/Dimethicone (Lansinoh) 7 Gm TP PRN PRN dryness/cracking Naloxone HCl 0.1 mg 08/07/21 14:00 Naloxone 0.4 Mg/1 Ml Inj IV Q2MIN PRN Res Rate </= 8 or 02 SAT < 92% Ondansetron HCl 4 mg 08/07/21 14:00 Ondansetron 4 Mg/2 Ml Inj IV Q8H PRN Nausea And Vomiting Oxycodone/Acetaminophen 1 tab 08/07/21 14:00 Oxycodone /Acetaminophen 5-325mg Tab PO Q6H PRN Pain, Moderate (4-6) Promethazine HCl 25 mg 08/07/21 14:00 Promethazine 25 Mg Rect Supp DC Q6H PRN N/V IF NPO AND NO IV ACCESS Senna 17.2 mg 08/07/21 22:00 Sennosides 8.6 Mg Tab PO QHS PRN Constipation Simethicone 80 mg 08/07/21 14:00 Simethicone 80 Mg Chew Tab PO Q6H PRN Gas pain Sodium Chloride 10 ml 08/07/21 14:00 Sodium Chloride 0.9% 10 Ml Flush Syringe IV PRN PRN flush Witch Amanda/Glycerin 1 each 08/07/21 14:00 Witch Amanda/ Glycerin Pad TP PRN PRN Hemorrhoids/cleansing/soothing
[2021-08-09] MEDS ORDERED: AMOXICILLIN/K CLAV 875/125MG TAB PO SCH (22:00)
[2021-08-10] MEDS: AMOXICILLIN/K CLAV 875/125MG TAB PO SCH ×2 (00:19→09:11)
[2021-08-10 09:00] VITALS: BP 117/72
--- NOTE | 2021-08-10 09:17 | Event Note ---
Date: 08/10/21 Incision evaluated and now wound dry with out drainage, will continue on augmentin and steristrips to remain in place with wound healing as expected. CNMW to discharge pt home later today. All questions encouraged and answered and pt agreeable with this plan
--- NOTE | 2021-08-10 13:25 | Progress Note ---
Assessment and Plan A: /postop day 3 S/P primary LTCS. Anemia. P: Discharge patient home today. Discussed with patient /postop instructions and warning signs. Advised patient re: care of incision and activity restrictions. Advised patient to continue taking her vitamins and iron supplements at home. Avised patient to avoid intercourse, lifting, housework, stair climbing, driving, and tub baths (patient may take showers). Advised patient to take Augmentin as prescribed by MD. Advised patient to follow up at [facility] office in 1 week (advised patient to call office tomorrow to obtain appointment). Patient voiced understanding of all instructions. Subjective - Subjective Date of service: 08/10/21 Principal diagnosis: /postop day 3 S/P primary LTCS Interval history: Doing well. Patient requests discharge home today. Patient reports: appetite normal, voiding normally, pain well controlled, flatus, ambulating normally, no dizzy ambulation, no nauseated [place]: doing well Objective - Vital Signs Latest vital signs: Vital Signs Temp Pulse Resp BP Pulse Ox Pulse Ox 08/10/21 08:10 97.5 F L 52 L 18 117/72 98 08/10/21 00:06 98.2 F 52 L 16 115/78 99 08/09/21 19:20 98 08/09/21 16:13 98.1 F 78 18 105/62 100 08/09/21 14:38 98 Intake and Output 08/09/21 08/10/21 08/10/21 23:59 07:59 15:59 Intake Total 300 500 Balance 300 500 Intake: Oral 200 Intake, Free Water 300 300 Other: Total, Intake Amount 200 # Voids Void 1 1 - Exam Cardiovascular: Present: Regular rate Lungs: Present: Clear to auscultation Abdomen: Present: normal appearance, soft, normal bowel sounds. Absent: distention, tenderness, guarding, rigidity Uterus: Present: normal, firm, fundal height below umbilicus (FH at 2 FB below umbilicus). Absent: bogginess, tenderness Extremities: Present: normal. Absent: tenderness, edema Incision: Present: dry, intact
--- NOTE | 2021-08-10 13:32 | Discharge Summary ---
Providers - Providers Date of Admission: 08/07/21 12:05 Date of discharge: 08/10/21 Attending physician: RHONA VIVEROS MD Primary care physician: RHONA VIVEROS MD Hospitalization Reason for admission: induction of labor Delivery: Procedure: primary low transverse Incision: normal, dry, intact Other procedures: none complications: none Discharge diagnosis: IUP at term delivered baby: female Pertinent studies: Labs Hospital course: Uncomplicated hospital course Condition at discharge: Good Disposition: 01 HOME / SELF CARE / HOMELESS - Discharge Diagnoses (1) Term delivered Status: Acute (2) Anemia Status: Acute Plan - Discharge Medications Prescriptions: Amoxicillin/Potassium Clav [Augmentin 875-125 Tablet] 1 each PO BID 7 Days #14 tablet Ibuprofen [Motrin 800 MG tab] 800 mg PO Q6H #30 tablet oxyCODONE /ACETAMINOPHEN [Percocet 5/325 mg] 1 tab PO Q6H PRN #30 tablet PRN Reason: Pain, Moderate (4-6) - Provider Discharge Summary Activity: routine, no sex for 6 weeks, no heavy lifting 4 weeks, no strenuous exercise Diet: routine Instructions: routine Additional instructions: Continue taking your vitamin and iron supplements at home. Follow up at [facility] in 1 week. Call your doctor immediately for: * Fever > 100.5 * Heavy vaginal bleeding ( >1 pad per hour) * Severe persistent headache * Shortness of breath * Reddened, hot, painful area to leg or breast * Drainage or odor from incision. * Keep incision clean and dry at all times and follow doctor's instructions regarding bathing/showering - Follow up plan Follow up: RHONA VIVEROS MD [Primary Care Provider] - 7 Days
--- NOTE | 2021-08-20 10:15 | Electrocardiograph Report ---
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
== END 2021-08-10 17:19 | disposition home or self-care (01) | DRG 766 ==
LOC: LD 12:05 → UNDOADMIN 12:05 → OBSVTOIN 13:38 → LD 13:38 → INTOOBSV 13:38 → LD 08-07 12:05 → OB 08-07 15:59
PROVIDERS: ADMIT Obstetrics & Gynecology; ATTEND Obstetrics & Gynecology
PROC: 10D00Z1 Extraction of Products of Conception, Low, Open Approach (ICD-10-PCS; principal; 2021-08-07)
DX: O76 Abnormality in fetal heart rate and rhythm complicating labor and delivery (principal); Z3A.40 40 weeks gestation of pregnancy; Z37.0 Single live birth; O99.02 Anemia complicating childbirth; Z20.822 Contact with and (suspected) exposure to COVID-19
CPT/HCPCS: 36415; 59200; 85014; 85018; 85025; 86850; 86900; 86901; 93005; 99211; G0378; G0463; J0690; J1100; J1885; J2370; J2405; J2765; J3105; J3490; J7120; U0003